=== PATIENT | male | born 2000 | race Caucasian/White ===

== ENCOUNTER 2025-05-07 20:02 | Emergency (ER) | payer OTHER, BC ==
[2025-05-07 21:58] LABS: MEAN PLATELET VOLUME 6.7 fL (6.7-11.0); PLATELET COUNT,PLT 564 x10(3)uL (117-477); RED BLOOD CELL COUNT 4.97 x10(6)uL (3.90-5.90); RED CELL DISTRIBUTION WIDTH 14.6 % (12.4-15.0); WHITE BLOOD CELL COUNT,WBC 14.4 x10-3/uL (3.2-10.1)
[2025-05-07 22:00] LABS: BLOOD UREA NITROGEN,BUN 10 mg/dL (7-18); CARBON DIOXIDE,CO2 27 mmol/L (21-32); CHLORIDE,CL 101 mmol/L (100-110); CREATININE 0.8 mg/dL (0.70-1.30); EST CRCL DRUG DOSING (CG) 143.61 mL/min; ESTIMATED GFR 128 mL/min (>60); GLUCOSE RANDOM 114 mg/dL (80-116); POTASSIUM,K 3.6 mmol/L (3.5-5.3); SODIUM,NA 141 mmol/L (135-145)
[2025-05-07 22:24] LABS: EOSINOPHILS PERCENT MAN 1 % (0-5); LYMPHOCYTES PERCENT MAN 7 % (13-37); MONOCYTES PERCENT MAN 13 % (4-12); SEG NEUTROPHILS PERCENT MAN 79 % (46-82)
== END 2025-05-07 22:45 | disposition home or self-care (01) ==
LOC: EDBD 20:02 → FB.ED 20:02
DX: R00.0 Tachycardia, unspecified (principal); Z88.1 Allergy status to other antibiotic agents; V49.49XA Driver injured in collision with other motor vehicles in traffic accident, initial encounter
CPT/HCPCS: 36415; 80048; 84484; 85025; 93005; 99283